=== PATIENT | female | born 1955 | race Caucasian/White ===

== ENCOUNTER → 2023-10-23 11:00 | Outpatient (REF) | payer BC, SELFPAY ==
[2023-10-23 12:18] LABS: PT 13.2 Sec (11.4-14.6)
[2023-10-23 12:19] LABS: APTT 28.8 Sec (23.4-35.0)
== END ==
LOC: RAD 11:00
PROVIDERS: ATTENDING PHYSICIAN Internal Medicine Critical Care Medicine; FAMILY PHYSICIAN Nurse Practitioner Family
DX: R91.1 Solitary pulmonary nodule (principal); Z01.812 Encounter for preprocedural laboratory examination
CPT/HCPCS: 36415; 71250; 85610; 85730

== ENCOUNTER 2023-10-27 06:29 | Day surgery (SDC) | payer BC, SELFPAY ==
[2023-10-27] VITALS (9 sets, daily range): BP systolic 116–130; BP diastolic 63–103; BMI 24.7
== END 2023-10-27 15:11 | disposition home or self-care (01) ==
LOC: GI 06:29
PROVIDERS: ATTENDING PHYSICIAN Internal Medicine Critical Care Medicine
DX: R91.1 Solitary pulmonary nodule (principal); D14.32 Benign neoplasm of left bronchus and lung
CPT/HCPCS: 31629; 31623; 31627; 31624; 31654; 31899; 88172; 88173; 88305; 71045; 74018; 76000; 87015; 87070; 87102; 87116; 87205; 88112; 88177; 88333; 88341; 88342; 94640; C1887

== ENCOUNTER 2024-01-07 05:05 | Inpatient (IN) | payer OTHER, SELFPAY ==
[2023-12-29 08:39] VITALS: BMI 26.5
[2023-12-29 09:13] LABS: % Basophils 1.3 % (0-2); % Eosinophils 0.6 % (0-6); % Immature Granulocytes 0.3 % (0-0.5); % Lymphocytes 21.7 % (20.5-51.1); % Neutrophils 69.1 % (42.2-75.2); Absolute Basophils 0.1 10^3/uL (0-0.2); Absolute Lymphocytes 1.4 10^3/uL (1.2-3.4); Absolute Monocytes 0.4 10^3/uL (0.1-0.6); Absolute Neutrophils 4.3 10^3/uL (1.4-6.5); Hematocrit 40.8 % (37.0-47.0); Hemoglobin 14.1 g/dL (12.0-16.0); Mean Corp Hgb Conc. 34.6 g/dL (33.0-37.0); Mean Corpuscular Hgb 33.1 pg (27.0-31.0); Mean Corpuscular Volume 95.8 fL (81.0-99.0); Mean Platelet Volume 8.9 fL (7.4-10.4); Nucleated Red Blood Cells % 0 %; Platelet Count 213 10^3/uL (130-400); Red Blood Cell Count 4.26 10^6/uL (4.20-5.40); Red Cell Dist. Width 13.4 % (11.5-14.5); White Blood Cell Count 6.3 10^3/uL (4.8-10.8)
[2023-12-29 09:20] LABS: APTT 27.4 Sec (23.4-35.0); INR 0.95; PT 13.2 Sec (11.4-14.6)
[2023-12-29 09:30] LABS: ALT (SGPT) 38 U/L (0-35); AST (SGOT) 40 U/L (14-36); Albumin 4.1 g/dl (3.5-5.0); Alkaline Phosphatase 42 U/L (38-126); Blood Urea Nitrogen 16 mg/dl (7-17); Calcium 9.2 mg/dl (8.4-10.2); Carbon Dioxide 27 mmol/L (22-30); Chloride 104 mmol/L (98-107); Direct Bilirubin 0.1 mg/dl (0.0-0.4); Estimated Creatinine Clearance 75 ml/min; Glucose 100 mg/dl (70-99); Potassium 4.2 mmol/L (3.5-5.1); Sodium 140 mmol/L (135-145); Total Bilirubin 0.6 mg/dl (0.2-1.3); Total Protein 6.5 g/dl (6.3-8.2); eGFR > 60.00
[2023-12-29 09:54] LABS: Urine Albumin Negative (Neg - Trace); Urine Bilirubin Negative (Negative); Urine Character Clear (Clear); Urine Color Yellow; Urine Glucose Negative (Negative); Urine Ketone Negative (Negative); Urine Leukocyte Negative (Negative); Urine Nitrite Negative (Negative); Urine Occult Blood Negative (Negative); Urine Urobilinogen Negative (Neg - 1+); Urine pH 6.5 (5.0-9.0)
[2023-12-29 11:26] LABS: Glycohemoglobin (HgbA1c) 5.3 % (4.0-5.6)
--- NOTE | 2023-12-29 11:57 | CM ---
spoke to pt in PAT's we discussed pre op Lung surgery teaching including driving and lifting restrictions. she is prev indep, lives with her husb in a 2 stroy home with 2 steps to enter. she denies any dme's. she is agreeable to a f/u visit from
the ct transitional care nurse after dc. cm role explained and all questions answered. plan is for [facility] Lobect. 01/06.
[2024-01-07 05:22] VITALS: BP 117/85; BMI 24.7
--- NOTE | 2024-01-07 06:04 | PTCARENOTE ---
Pt admitted to room 2261. Pt confirmed NPO status and 2 CHG showers at home. Weight and VS obtained. Admission questions answered. Home medications confirmed. Pt clipped and prepped. CHG cloth bath completed. ABO drawn and sent. Pt oriented to room
and updated on plan on care. Family brought to the bedside.
--- NOTE | 2024-01-07 06:16 | W.CVOR.SURPR ---
CVOR Surgeon Immed Pre Op
-
I have examined this patient prior to performance of the scheduled procedure.
The patient's condition is unchanged from the time of the dictated/written History and
Physical and the patient is able to undergo the scheduled procedure.
RATS JOSE + LN dissection + Intraop Bronchoscopy
[2024-01-07 07:32] LABS: Urine Albumin Negative (Neg - Trace); Urine Bilirubin Negative (Negative); Urine Character Clear (Clear); Urine Color Yellow; Urine Glucose Negative (Negative); Urine Ketone 1+ (Negative); Urine Leukocyte Negative (Negative); Urine Nitrite Negative (Negative); Urine Occult Blood Negative (Negative); Urine Urobilinogen Negative (Neg - 1+)
--- NOTE | 2024-01-07 09:00 | CM ---
Patient in OR today for planned Lung Surgery.
Reviewed initial assessment; pt. resides w/ spouse in a private 2 story home. She is functionally indep. w/ ADLs, mobility without the use of any assisted device.
Anticipate DC to home once medically stable w/ CT Transitional Care RN.
CM to follow.
--- NOTE | 2024-01-07 12:11 | W.PN.CT.SURG ---
CT Surgery Operative Note
-
THORACIC SURGERY OPERATIVE REPORT
Preoperative Diagnosis: Left upper lobe groundglass opacity with positive biopsy for adenocarcinoma
Postoperative Diagnosis: Same
Procedure(s) Performed:
1. Robotic assisted thoracic surgery (RATS) with conversion to thoracotomy
2. Left upper lobe lobectomy
3. Radical lymph node dissection
4. Intercostal nerve block intercostal spaces 5, 6, 7, 8
5. Additional anesthesia ultrasound-guided nerve block, para vertebral
6. Rib plating and reconstruction (8-hole plate x 2 and 6-hole plate x 1)
7. Preoperative bronchoscopy
Date of Surgery: 01/07/24
Comorbidities:
1. 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
2. Osteoporosis
3. History of breast cancer status postlumpectomy and radiation
4. History of vision issues involving floaters and flashing
5. History of tobacco abuse, recently quit
Attending Surgeon: Ferny Nova MD, MS
Assistants: Ferny Garcia PA-C (present and necessary to first responder, exchanging robotic instruments, retraction, suction, exposure, suture management, and wound closure under my direction) & Elizabeth Pascual PA-C
Anesthesiology: Mark Goyal MD and Shawn Butts CRNA
Scrub and Circulating RNs: Shameka Rendon RN, Wendy Love RN
Anesthesia: Dual Lumen GETA
EBL: 200-250 cc
Products: None
Indication(s) for Procedures: This is a 68-year-old female who is well-known to me. She is found to have a groundglass opacity on lung screening CT scan. She underwent robotic assisted endoluminal bronchoscopy which came back with atypical cells
although not diagnostic. She had further evaluation by 2 other facilities with 1 coming back as positive for non-small cell carcinoma consistent with adenocarcinoma and the other coming back with atypical cells. Multidisciplinary team discussion
between myself and her interventional sommelier came to conclusion that additional biopsies of this groundglass opacity was potentially dangerous as it was right next to a sizable pulmonary artery. We discussed the risk and benefits of surgical
resection and because of the location towards the hilum this was not amenable to wedge resection. We opted for left upper lobectomy with lymph node dissection.
Findings: Given the location of the tumor close towards the hilum and the bronchus, and intraoperative bronchoscopy was performed for positioning the patient. There were no intraluminal lesions identified. There were no obvious intrathoracic
lesions concerning for metachronous disease. She had an incompletely developed fissure. Additional lymph node dissection was performed and listed below. The major lingular branches were divided accordingly. The large branch towards the superior
segment of the left upper lobe was also identified and divided. The branch towards the apical posterior segment of the left upper lobe was densely adherent to the bronchus leading to the left upper lobe. Dissection here resulted in a tear towards
the base of the branch off the main left pulmonary artery. Immediate compression was performed using a robotic arm at this point we had hemostasis and control and so we converted to a thoracotomy. Once this was performed, the bronchial branches
were then divided sequentially in the left upper lobe after clamping and verifying unobstructed flow to the remaining left lower lobe. The only thing remaining was this arterial branch which was divided with a gold load stapler. There was still
some oozing towards the base of the branch and a pledgeted 5-0 suture was used to repair this. Hemostatic agents were then applied to both the hilar stump as well as the raw surface after developing the fissure. The chest was then surveilled and
there was no further bleeding from the hilum or parenchymal tissue. In order to gain access sufficiently to repair the artery, I had to shingle 2 ribs at interspaces 7 and 8. These were repaired using plates with a combination of 8 mm and 10 mm
screws. 2 chest tubes were placed one towards the apex and one towards the diaphragmatic recess. There is no significant air leak at the conclusion of the case and no loss of tidal volume. The left lower lobe that was remaining inflated briskly.
Specimen(s):
Station 9, x 3 nodes
Station 10, x 4 nodes
Station 11, x 1 nodes
Station 5, x 3 nodes
Station 6, x 1 nodes
Station 7, x 1 nodes
Left upper lobe
Description of Procedure: The patient was taken to the operating room. Induction via general anesthesia with endotracheal intubation was performed and peripheral venous access and arterial monitoring were inserted. A preoperative bronchoscopy was
performed which revealed no endoluminal lesions. Their identity and procedure to be performed were verified and they were positioned with the left side up on the operating table. The patient was then prepped and draped in a sterile fashion. A
preoperative time-out was performed with all members of the team present. A Veress needle was used to insufflate the chest after isolating the lung. An 8 mm port was placed in the midaxillary line at approximately the eighth intercostal space and
confirmed to be intrathoracic without significant pulmonary injury. The chest was surveyed for any evidence of metastatic disease. Patient tolerate insufflation without complication. 2 additional 12 mm trocars were placed on either side under
camera guidance and a third 8 mm trocar was placed along the back. A 12 mm therapy assistant port was placed in the 11th intercostal space above the insertion of the diaphragm. An intercostal nerve block was performed at intercostal spaces 5 through 8.
The thoracic cavity was inspected for evidence of metastatic disease. None was observed. We started with mobilization of the inferior pulmonary ligament. We worked our way clockwise dissecting out the hilum and harvest any lymph nodes identified.
The pulmonary arteries and veins leading to the left upper lobe were identified and skeletonized. They were sequentially divided with a white load stapler. Additional green load fires were used to divide the fissure which was incomplete. The
remaining structures at this point where the bronchus leading to the left upper lobe was bifurcated as well as a single apical posterior branch coming off the main pulmonary artery on the left side. Attempts to mobilize the artery off of the
bronchus resulted in bleeding at the base of the branch and so I merely dropped the lung and compressed it with the robotic arm which yielded acceptable hemostasis. Fearing that additional retraction of the left upper lobe would result in
exacerbation of this tear, I converted to a thoracotomy while using the number for robotic arm as my agent to compress. Once entered to the chest, I had the shingle 2 ribs in order to obtain enough cephalad exposure towards the hilum. After
approximately 5 to 10 minutes of compression, there was acceptable amount of hemostasis. I then developed and circumferentially surrounded the 2 bifurcating branches to the left upper lobe. These were divided sequentially with purple load staple
fires after test clamping revealing no obstructed flow to the left lower lobe. At this point this gave me access to the remaining arterial branch of the left upper lobe. This was divided with a gold load stapler. Saline was used to flood the
field in order to remove any hematoma or clotted blood. At this point I noticed that at the bottom of the staple line toward the base of the branch there was still some oozing. A 5-0 pledgeted suture was applied here in order to obtain complete
hemostasis. Hemostatic agents were then applied to the hilum as well as the raw surface of the remaining left lower lobe. The specimen was removed from the chest. I then obtained hemostasis of the chest wall with clips and cautery. The ribs were
reconstructed using a punch and large vicryl suture as well as plates. A combination of 8mm and 10mm screws were used. A 24F straight chest tube was placed anteriorly toward the apex, and a 28F angled chest tube toward the diaphragmatic recess. The
camera was used to surveil the chest and no retained objects were identified and counts were correct. There was the possibility of a lost screw, and so a post surgical chest xray was performed. The fascial layer was closed accordingly in an
interrupted fashion and the muscular layer was closed in a continuous running suture. Skin was closed with running 4-0 vicryl. Additional local anesthesia was injected into all incision sites. The skin wound was cleansed and sealed with Dermabond
glue.
All instrument, sponge, and needle counts were confirmed to be correct x 2 at the end of the operation. The patient was transferred to the cardiac intensive care unit intubated in critical but stable condition.
I, Dr. Ferny Nova, was present, scrubbed for, and performed all critical elements of this procedure.
Ferny Nova MD, MS
Cardiothoracic Surgeon
[facility]
This operative dictation was created using the [employer] dictation system. Please excuse any grammatical, typographical, or 'sound alike' errors
--- NOTE | 2024-01-07 12:39 | CON.INTV ---
Consultation
Consultation Request
Date/Time Consultation Requested: 01/07/2024-1 PM
Date/Time Consultation Performed: 01/07/2024-1:30 PM
Requesting Provider: Dr. Nova
Performing Provider: Dr. Zamudio
Reason for Consultation: Postoperative critical care management
Medical History
-
Chief Complaint: Lungs CA
History of Present Illness:
68-year-old female with a 84-odzh-kjmn smoking history noted to have a PET avid left upper lobe pulmonary nodule who underwent robotic bronchoscopy and pathology was sent for second opinion to [facility] felt positive for malignant
cells favoring non-small cell carcinoma adenocarcinoma and underwent thoracotomy and left upper lobectomy-canal boat captain consulted for postoperative ventilator/critical care management 01/07/2024. Patient is sedated on a ventilator review systems
unobtainable.
Past Medical History
Past Medical History: None (Left upper lobe adenocarcinoma status post lobectomy this admission 01/07/2024. Former 60-esuh-olrn smoker. Osteopenia. 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 Colon polyps.)
Past Surgical History: None (Left elbow fracture. Right breast biopsy. Right breast lumpectomy 06/2018. D&C.)
Social History
Tobacco: Former Smoker (64-zprp-jwlh-quit September 2023)
Alcohol: None (Rare)
Drug: None
Living: With Family
Occupational Exposures: No known asbestos exposure
Environmental Exposures: No known tuberculosis exposure
Family History
Family History: Reviewed & Not Pertinent (Father-cancer-? Type, diabetes, CAD and hypertension. Fyserg-uandvt-lpemce and subsequently pancreatic. Sister-hypertension.)
Allergies / Home Medications
Allergies
Allergy/AdvReac Type Severity Reaction Status Date / Time
No Known Allergies Allergy Unverified 12/25/23 09:14
Home Medications
�Medication �Instructions �Recorded �Confirmed �Last Taken �Type
lorazepam 0.5 mg tablet 0.5 mg PO Daily PRN Anxiety 10/23/23 01/07/24 01/07/24 03:00 History
raloxifene 60 mg tablet (Evista) 60 mg PO DAILY 10/23/23 01/07/24 12/30/23 History
zoledronic acid 5 mg/100 mL in 5 mg IV Q12M 10/23/23 01/07/24 02/24/23 History
mannitol 5 %-water intravenous
piggybck (Reclast)
calcium carbonate (Calcium 500) 500 mg PO DAILY 12/25/23 01/07/24 12/30/23 History
vitamin D3 25 mcg (1,000 unit)-vit 1 tab PO DAILY 12/25/23 01/07/24 12/30/23 History
K2 90 mcg disintegrating tablet
Review of Systems
-
Unable to Obtain full review of systems at this time due to: Other (Per HPI)
Vitals / Labs / Diagnostic Testing
Vital Signs
Temp Pulse Resp BP Pulse Ox
97.6 F 70 16 117/85 100
01/07/24 05:22 01/07/24 05:22 01/07/24 05:22 01/07/24 05:22 01/07/24 05:22
Lab Data
12/29/23 08:48
12/29/23 08:48
Diagnostic Testing:
Physical Exam
-
Exam:
Well-nourished and well-developed in no apparent distress
HEENT-atraumatic, normocephalic
Neck-supple, no JVD, no bruit
Heart-regular rate and rhythm-no murmurs, rubs or gallops
Chest with diminished breath sounds, chest tube on the left with crackles at the base
Abdomen-soft, nontender, nondistended, no hepatosplenomegaly
Extremities-no cyanosis, clubbing, edema and good peripheral pulses
Integument-intact, no rashes, lesions or ecchymosis
Neurology-alert and oriented, nonfocal motor and sensory exam
Assessment
-
68-year-old female with a 26-uieu-cwmu smoking history noted to have a PET avid left upper lobe pulmonary nodule who underwent robotic bronchoscopy and pathology was sent for second opinion to [facility] felt positive for malignant
cells favoring non-small cell carcinoma adenocarcinoma and underwent thoracotomy and left upper lobectomy-canal boat captain consulted for postoperative ventilator/critical care management 01/07/2024.
Lung cancer-left upper lobe 9 mm adenocarcinoma
Status post robotic assisted thoracic surgery with conversion to thoracotomy/left upper lobectomy/radical lymph node dissection-Dr. Nova 01/07/2024
Conditions present prior to admission:
Left upper lobe adenocarcinoma status post lobectomy this admission 01/07/2024.
Former 30-phgp-fmhi smoker-normal PFTs
Osteopenia.
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
Colon polyps.
Left elbow fracture. Right breast biopsy. Right breast lumpectomy 06/2018. D&C.
Plan
Patient seen in the cardiovascular intensive care unit postoperatively
Operative records reviewed
Ventilator settings reviewed
Wean FiO2
Spontaneous breathing trial
Hope to extubate later today
VAP prevention protocol
Nebulizers if needed-not bronchospastic
Preoperative pulmonary functions essentially normal
Monitor chest tube output
Monitor hemoglobin
Monitor platelet count and coags
Transfuse blood product if needed
CT surgery following chest tubes
Analgesia per primary service
Monitor blood sugar
Insulin drip per protocol
Await pathology from lung resection as well as lymph node dissection
Aspiration precautions
VAP prevention protocol
DVT prophylaxis
Early nutrition
Early mobilization
Critical care statement: A total of 55 minutes of critical care time was provided for this patient today. This includes management of ventilator, spontaneous breathing trial, arterial blood gases, pressors, of unstable vital signs, evaluation of the
patient at bedside, reviewing the patient's pertinent medical records including radiographs, microbiology, laboratory evaluations, and discussion with primary team and critical care nursing.
Diagnostic data:
Chest x-ray 01/07/2024-no discrete radiopaque intrathoracic foreign body, ET tube extends into the left mainstem, 2 left-sided chest tubes
PET scan 09/19/23 ([facility]): max SUV 5.23 of left upper lobe nodule measuring 1.4 cm.� Ill-defined right upper lobe nodule measuring 7 mm, SUV 0.67.� No hypermetabolic adenopathy.
LDCT 09/08/23 ([facility]): 5 mm right mid lobe nodule, unchanged.� 6 mm subpleural left lower lobe nodule unchanged.� There is an increase in left upper lobe nodule, groundglass, now measuring 1.6 cm previously 9 mm and a 3 mm solid component.� No
adenopathy.� Images compared to 09/04/22 per report
LDCT 09/04/22 ([facility]): unchanged right upper lobe nodule 5 mm, unchanged 7 mm left lower lobe nodule.� There is no comment on left upper lobe nodule
LDCT 08/23/21 ([facility]): unchanged 6 mm left lower lobe nodule and 5 mm right lower lobe nodule
LDCT 06/17/20 ([facility]): 7 mm left lower lobe nodule, 4 mm right middle lobe nodule subpleural.� Unchanged compared to 2019CXR 06/26/18:mild flattening of the diaphragm and the lateral, mild hyperinflation.
PFT 10/14/23 ([facility]): FVC 3.58/112%, FEV1 2.63/106%, ratio 73.� TLC 5.56/110%, RV 2.06/122%, DLCO 20.72/71%.� Isolated mild gas exchange defect with mild hyperinflation
Data Reviewed
-
PFT: Report reviewed by me
Radiology: Image personally visualized and interpreted and Report reviewed by me
CT Scan: Image personally visualized and interpreted and Report reviewed by me
Medical Tests (Nuc Med, Echo etc): Report reviewed by me
Labs: Labs reviewed by me
Old Records: Reviewed
Critical Care Time (in minutes): 55
--- NOTE | 2024-01-07 13:15 | PTCARENOTE ---
Phone report received daniela Vallecillo CVOR RN around 12noon. PAtient received direct from CVOR status post RATS procedure with conversion to thoracotomy approach with left upper lobe lobectomy, radical lymph dissection, intercostal nerve block 5 6 7 and
8, aaded nerve block para vertebral, rib plating and preop broch. Cjest tubes left apical and left basiliar each to -20 wall suction. No 'dumping'. NSR to SB on monitor. Right radial art line. Precedex/levo intermittent.
[2024-01-07] MEDS: ANCEF 10 IV ×2 (13:20)
[2024-01-07 13:23] LABS: Hematocrit 37.8 % (37.0-47.0); Hemoglobin 12.7 g/dL (12.0-16.0); Mean Corp Hgb Conc. 33.6 g/dL (33.0-37.0); Mean Corpuscular Hgb 33.1 pg (27.0-31.0); Mean Corpuscular Volume 98.4 fL (81.0-99.0); Mean Platelet Volume 8.8 fL (7.4-10.4); Platelet Count 182 10^3/uL (130-400); Red Blood Cell Count 3.84 10^6/uL (4.20-5.40); Red Cell Dist. Width 13.2 % (11.5-14.5); White Blood Cell Count 11.4 10^3/uL (4.8-10.8)
[2024-01-07 13:26] LABS: B.E. -2.7 mmol/L; HCO3 22.6 mmol/L (21-28); O2 Saturation % 99.3 % (94-98); PCO2 40 mmHg (32-35); PO2 218 mmHg (83-108); pH 7.36 (7.35-7.45)
--- NOTE | 2024-01-07 13:32 | W.PN.UPDATE ---
Update Note
Progress Note Update
68 year old female was electively admitted for left upper lobe lobectomy and lymph node dissection due to adenocarcinoma of the lung
IV fluids: 1800
EBL: 250
U.O.:� 300
Blood:� N/A
Wires:� N/A
Inotropes:� N/A
Pressors:� Levopohed
Sedatives:� Precedex
�
NEURO: sedated on Precedex, pupils +2mm B/L
RESP: #8OT @23cm> 450/60%/12/5. Lungs clear B/L. 2R pleural (apical and basilar) chest tubes to separate drainage containers with -20cm suction. Sanguineous drainage
CV: RRR +S1, S2, no S3, no�rub, no murmur. Dermabond to left thoracotomy.
ABD: round, soft, no BS
EXT: no edema, +2/4 DP pulses B/L, no femoral bruit, right radial A-line intact
: Ledbetter with clear yellow urine
�
A/P: POD #0 s/p pre-op bronchostomy, Robotic assisted thoracic surgery (RATS) with conversion to thoracotomy, Left upper lobe lobectomy, Radical lymph node dissection, Rib plating and reconstruction, intercostal and para vertebral nerve block
- wean and extubate, then place Atrium to -10cm suction if air leak is intermittent, otherwise maintain -20cm suction
- Dilaudid LPN INSTRUCTOR @ 0.2mg q10min with 1.2mg lockout/hr
�
# Osteoporosis
- takes Reclast annually
# History of breast cancer s/p lumpectomy and radiation
-resume Evista
# History of tobacco abuse, recently quit
- counselling on importance of lifelong cessation
�
[2024-01-07 13:41] LABS: Blood Urea Nitrogen 15 mg/dl (7-17); Calcium 7.8 mg/dl (8.4-10.2); Carbon Dioxide 22 mmol/L (22-30); Chloride 106 mmol/L (98-107); Estimated Creatinine Clearance 93 ml/min; Glucose 153 mg/dl (70-99); Potassium 4.3 mmol/L (3.5-5.1); Sodium 137 mmol/L (135-145); eGFR > 60.00
[2024-01-07 13:43] LABS: INR 0.95; PT 13.1 Sec (11.4-14.6)
[2024-01-07 13:45] LABS: APTT 25.6 Sec (23.4-35.0)
[2024-01-07] MEDS: DILAUDID PCA 30 IV (14:03)
[2024-01-07] MEDS: TORADOL 15 MG IV ×2 (14:13→23:45)
--- NOTE | 2024-01-07 14:15 | PTCARENOTE ---
Apical chest tube as labeled by CT KALYANI Isaacs, has small plus 1 air leak. Basiliar chest tube as labeled without air leak. Ruthann CT surgical ANDROID PLATFORM DEVELOPER aware of same. Patient is starting to awaken, but too groggy for CPAP wean(apneic periods) will
monitor for wakefullness a readiness for cpap vent wean per cvicu protocol.
[2024-01-07] MEDS: NEURONTIN PO ×2 (15:03→16:00)
[2024-01-07] MEDS: MIRALAX PO (15:03)
[2024-01-07] MEDS: EVISTA PO (15:03)
[2024-01-07] MEDS: TYLENOL PO (15:04)
[2024-01-07] MEDS: SENOKOT PO ×2 (15:04→21:25)
[2024-01-07 15:48] LABS: B.E. -4.2 mmol/L; O2 Saturation % 99.9 % (94-98); PCO2 38 mmHg (32-35); PO2 152 mmHg (83-108); pH 7.35 (7.35-7.45)
--- NOTE | 2024-01-07 15:55 | PTCARENOTE ---
No macute changes. Apical and basilar chest tube suction reduced to -10cm per ct surgery. Patient with CHARGE AUDITOR is tolerating CPAP wean and abg results to DILMA Beavers and Dr. Nova. Extuabated to 4l nasal canula with continuous ETCO2 monitoring
[2024-01-07] MEDS: ZOFRAN 4 MG IV (16:25)
--- NOTE | 2024-01-07 18:00 | PTCARENOTE ---
No acute changes. Vitals stable. No further nausea. Pain well controlled by TOWEL CABINET REPAIRER as ordered and instructed.
[2024-01-07] MEDS: ANCEF 5 IV (18:12)
--- NOTE | 2024-01-07 19:00 | PTCARENOTE ---
report received from previous RN, walking rounds done. pt in bed, spouse at bedside. pt AAOx4. pt reports pain is controlled with DRUM PRINTER pump. NSR/SB on monitor, HR 50s-60s. B/L radial and DP pulses palpable. heart tones clear. right radial arterial
line intact, SBP ~110s-120s. B/L breath sounds present. POX 97-99% on 2LNC. etCO2 monitor in place reading ~35-36. IS encouraged. CT x2 intact to -10cm wall suction, drainage WNL, no air leak noted. sosa catheter intact, draining CYU, UO adequate.
hypoactive bowel sounds present. pt tolerating ice and sips of water. PIV x2 intact. IVFs infusing @ 40 mL/hr per orders w DRUM PRINTER infusion. all surgical sites stable. see worklist for full assessment, VS, and interventions. pt resting comfortably.
[2024-01-07] MEDS: TYLENOL 1000 MG PO (21:24)
[2024-01-07] MEDS: NEURONTIN 100 MG PO (21:24)
[2024-01-07] MEDS: HEPARIN 5000 UNITS SC (21:24)
[2024-01-07] MEDS: COLACE PO (21:25)
--- NOTE | 2024-01-07 23:00 | PTCARENOTE ---
no acute changes in assessment. SR/SB 50s-60s. POX 98% on 2LNC. CT output and UO WNL. all surgical sites stable. pt reports pain is becoming increasing worse, see MAR for PRN med administration. turning/repositioning pt as needed.
[2024-01-08] VITALS (10 sets, daily range): BP systolic 96–126; BP diastolic 51–78; BMI 24.9
[2024-01-08] MEDS: DILAUDID 0.5 MG IV (00:02)
[2024-01-08] MEDS: FLEXERIL 5 MG PO ×3 (00:08→17:26)
[2024-01-08] MEDS: D5/0.45%NACL 1000 IV (00:18)
[2024-01-08] MEDS: ANCEF 5 IV ×2 (02:04→10:22)
--- NOTE | 2024-01-08 03:00 | PTCARENOTE ---
no acute changes, pt VSS. NSR 60s. POX 96-98% on 2LNC. etCO2 35-36. CT output and UO WNL. all surgical sites stable. pt resting comfortably.
[2024-01-08] MEDS: DILAUDID 0.25 MG IV (04:07)
[2024-01-08 04:13] LABS: Hemoglobin 12.5 g/dL (12.0-16.0); Mean Corp Hgb Conc. 33.8 g/dL (33.0-37.0); Mean Corpuscular Hgb 33.3 pg (27.0-31.0); Mean Corpuscular Volume 98.7 fL (81.0-99.0); Mean Platelet Volume 8.9 fL (7.4-10.4); Platelet Count 195 10^3/uL (130-400); Red Blood Cell Count 3.75 10^6/uL (4.20-5.40); Red Cell Dist. Width 13.2 % (11.5-14.5); White Blood Cell Count 13.6 10^3/uL (4.8-10.8)
[2024-01-08 04:35] LABS: Blood Urea Nitrogen 12 mg/dl (7-17); Calcium 7.8 mg/dl (8.4-10.2); Carbon Dioxide 23 mmol/L (22-30); Chloride 109 mmol/L (98-107); Estimated Creatinine Clearance 93 ml/min; Glucose 132 mg/dl (70-99); Magnesium 2.1 mg/dl (1.6-2.3); Potassium 4.5 mmol/L (3.5-5.1); Sodium 139 mmol/L (135-145); eGFR > 60.00
--- NOTE | 2024-01-08 05:30 | W.PN.CT ---
Today's Communication / Plan
-
-pod #1
-no significant issues overnight
-on Dilaudid MORNING SHOW HOST postop with some breakthrough pain, tx with Toradol and Neurontin
-L pleural CTS: Apical Romeo with intermittent air leak with cough or deep breathing, -10 sxn, put out 40/110 in 12/24 hrs; Base CT with no air leak, -10 sxn, put out 120/180 in 12/24 hrs
-follow daily CXR
-d/c Ledbetter
-encourage IS
-DVT proph with sq Heparin
Assessment / Plan
-
- Left upper lobe adenocarcinoma of the lung - s/p pre-op bronchostomy, Robotic assisted thoracic surgery (RATS) with conversion to Thoracotomy, Left upper lobe lobectomy, Radical lymph node dissection, Rib plating and reconstruction, intercostal
and para vertebral nerve block on 01/07/[address] Nova, pod #1
- History of breast cancer, status post lumpectomy and radiation
- Osteoporosis
- History of vision issues involving floaters and flashing
- History of tobacco abuse, recently quit
- Acute postop atelectasis
Discussed patient care with: Nursing and Care Team
Subjective
-
Date of Service: January 07, 2024
Objective Data
-
Lab Results
01/07/24 13:15
01/07/24 13:15
PT 13.1 Sec (11.4-14.6) 01/07/24 13:15
INR 0.95 01/07/24 13:15
APTT 25.6 Sec (23.4-35.0) 01/07/24 13:15
Vital Signs
Vital Signs
Temp Pulse Resp BP Pulse Ox
99.4 F 57 12 117/85 96
01/07/24 22:00 01/07/24 22:00 01/07/24 22:00 01/07/24 05:22 01/07/24 22:00
CT Intake/Output/Weight
01/07/24 01/07/24 01/08/24
06:59 18:59 06:59
Intake Total 210 / 370 160 / 370
Output Total 350 / 585 235 / 585
Balance -140 / -215 -75 / -215
SaO2: 96
Physical Exam
-
General: Awake and AOx3
Cardiovascular: Regular rate & rhythm, No Murmurs and No Rub
Respiratory: Decreased Breath Sounds (on L, Clear on R. No wheeze b/l)
Incision: Clean, Dry and Intact
Extremities: No Edema (2+ DPs b/l)
Abdomen: soft, nontender, nondistended, + bowel sounds
Data Reviewed
-
Lab Results: Results Reviewed
Medications: Active Meds Reviewed
Chest X-Ray: Report Reviewed and Image Reviewed
ECG: Report Reviewed and Image Reviewed
[2024-01-08] MEDS: ZOFRAN 4 MG IV (06:58)
[2024-01-08] MEDS: TYLENOL 1000 MG PO ×3 (06:58→23:08)
--- NOTE | 2024-01-08 07:21 | W.PN.ANS.POP ---
Anesthesia Post Operative
- Anesthesia Post Op Note
Vital Signs Stable-See Nursing Note: Yes
Airway Patent: Yes
Adequate Pain Control: Yes (Pt with some incisional discomfort, encouraged to utilize PRN pain meds.)
Change in Mental Status: No
Current Postoperative Nausea & Vomiting: No
Anesthesia Complications: No
General Anesthetic Recall: No
Unplanned Admission: No
Post Op Hydration Adequate: Yes
- -
Selected Entries
01/08/24
07:00
Resp Rate 16
SaO2 98
Nasal Cannula flow liters per minute 2
Pain scale ratin
etC02 value 35
--- NOTE | 2024-01-08 07:44 | W.PN.INTV ---
Today's Communication / Plan
Recommendations
Tolerated extubation
Wean FiO2
Monitor chest tube output
Follow chest x-ray
Increase activity
Outpatient pulmonary follow-up
Assessment
-
68-year-old female with a [id number] smoking history noted to have a PET avid left upper lobe pulmonary nodule who underwent robotic bronchoscopy and pathology was sent for second opinion to [facility] felt positive for malignant
cells favoring non-small cell carcinoma adenocarcinoma and underwent thoracotomy and left upper lobectomy-captain waiter/waitress consulted for postoperative ventilator/critical care management 01/07/2024.
Lung cancer-left upper lobe 9 mm adenocarcinoma
Status post robotic assisted thoracic surgery with conversion to thoracotomy/left upper lobectomy/radical lymph node dissection-Dr. Nova 01/07/2024
Conditions present prior to admission:
Left upper lobe adenocarcinoma status post lobectomy this admission 01/07/2024.
Former [id number] smoker-normal PFTs
Osteopenia.
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
Colon polyps.
Left elbow fracture. Right breast biopsy. Right breast lumpectomy 06/2018. D&C.
Plan
Respiratory status stable-tolerated extubation
Wean supplemental oxygen
Nebulizers if needed-not bronchospastic
Preoperative pulmonary functions essentially normal-mild reduction in diffusing capacity
Continue to follow chest tube output
Monitor hemoglobin
Monitor platelet count and coags
Transfuse blood product if needed
CT surgery following chest tubes
Analgesia per primary service
Monitor blood sugar
Insulin drip per protocol
Await pathology from lung resection as well as lymph node dissection
Aspiration precautions
VAP prevention protocol
DVT prophylaxis
Early nutrition
Early mobilization
Patient likely downgraded to telemetry-captain waiter/waitress will sign off-please call with questions
Reviewed the patient's pertinent medical records including radiographs, microbiology, laboratory evaluations, and discussion with primary team and critical care nursing.
Diagnostic data:
Chest x-ray 01/07/2024-no discrete radiopaque intrathoracic foreign body, ET tube extends into the left mainstem, 2 left-sided chest tubes
PET scan 09/19/23 ([facility]): max SUV 5.23 of left upper lobe nodule measuring 1.4 cm.� Ill-defined right upper lobe nodule measuring 7 mm, SUV 0.67.� No hypermetabolic adenopathy.
LDCT 09/08/23 ([facility]): 5 mm right mid lobe nodule, unchanged.� 6 mm subpleural left lower lobe nodule unchanged.� There is an increase in left upper lobe nodule, groundglass, now measuring 1.6 cm previously 9 mm and a 3 mm solid component.� No
adenopathy.� Images compared to 09/04/22 per report
LDCT 09/04/22 ([facility]): unchanged right upper lobe nodule 5 mm, unchanged 7 mm left lower lobe nodule.� There is no comment on left upper lobe nodule
LDCT 08/23/21 ([facility]): unchanged 6 mm left lower lobe nodule and 5 mm right lower lobe nodule
LDCT 06/17/20 ([facility]): 7 mm left lower lobe nodule, 4 mm right middle lobe nodule subpleural.� Unchanged compared to 2019CXR 06/26/18:mild flattening of the diaphragm and the lateral, mild hyperinflation.
PFT 10/14/23 ([facility]): FVC 3.58/112%, FEV1 2.63/106%, ratio 73.� TLC 5.56/110%, RV 2.06/122%, DLCO 20.72/71%.� Isolated mild gas exchange defect with mild hyperinflation
Subjective Dataa
Subjective Data
Date of Service:
Date of Service: January 08, 2024
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
Subjective:
Tolerated extubation, no complaints of shortness of breath, pain mostly controlled, chest tubes with minimal drainage, no abdominal pain
Review of Systems
General: Other ( per HPI)
Objective Data
Data Reviewed
Vital Signs / I&O / Oxygen:
Vital Signs
Temp Pulse Resp BP Pulse Ox
99.1 F 73 16 117/85 98
01/08/24 06:00 01/08/24 04:00 01/08/24 07:00 01/07/24 05:22 01/08/24 07:00
Intake and Output
01/07/24 01/08/24 01/09/24
06:59 06:59 06:59
Intake Total 690 / 690
Output Total 1325 / 1325
Balance -635 / -635
SaO2 [CPAP/PSV] 98
SaO2 [SIMV] 98
SaO2 98
Nasal Cannula flow liters per 2
minute
Physical Exam
General: Respiratory Distress (n) and Comfortable
HEENT: Normocephalic, Anicteric and Moist Mucous Membranes
Cardiovascular: Regular Rhythm
Respiratory: Wheeze (n), Crackles (n), Rhonchi (n), Non-Labored Respirations, Accessory Resp Muscle Use (n) and Stridor (n)
GI: Soft, Non Distended and Non Tender
Neurology: Awake, Alert and No Motor Deficits
Skin: Warm, Good Color, Cyanosis (n), Jaundice (n) and Rash (n)
Labs/Micro/Reports
Lab Data
01/08/24 03:59
01/08/24 03:59
Laboratory Results
01/07/24 01/07/24
13:15 15:38
PT 13.1
INR 0.95
APTT 25.6
pH 7.36 7.35
pCO2 40 H 38 H
pO2 218 H 152 H
HCO3 22.6 21.0
O2 Delivery Level Not Reportable
--- NOTE | 2024-01-08 08:30 | PTCARENOTE ---
Assumed care of patient. Pt assessed while she was sitting in the chair. Pt alert and oriented x4. Pt rates left sided chest/back pain 2/10 while resting and then 7 when doing IS. Denies nausea at this time. NSR on tele with rates 60s-70s. BP
109/61. Bilateral radial and DP pulses palpable. No edema noted. POX 98% on 1L NC. EtCO2 33. Lungs diminished throughout. No cough noted. IS encouraged-750mL achieved. Left basilar and Left apical chest tubes to water seal, no air leaks, tidaling,
crepitus noted. Abdomen soft, nontender. Hypoactive BS. +gas. Due to void post sosa removal. Left sided incision approximated with skin glue, ecchymosis noted. Chest tube dressing CDI. Left hand PIC and Right AC PIV intact. Dilaudid CIGARETTE MAKING MACHINE HOPPER FEEDER and IVF
infusing. See MAR for medication administration. See worklist for complete nursing assessment. Plan of care reviewed and pt in agreement.
[2024-01-08] MEDS: COLACE 100 MG PO (08:59)
[2024-01-08] MEDS: EVISTA 60 MG PO (09:00)
[2024-01-08] MEDS: NEURONTIN 100 MG PO ×3 (09:00→23:08)
[2024-01-08] MEDS: TORADOL 15 MG IV ×2 (09:01→17:26)
[2024-01-08] MEDS: SENOKOT 8.6 MG PO ×2 (09:01→20:50)
[2024-01-08] MEDS: HEPARIN 5000 UNITS SC ×2 (09:02→16:42)
[2024-01-08] MEDS: LIDOCAINE 4% PATCH 1 PATCH TOPICAL (09:03)
[2024-01-08] MEDS: MIRALAX PO (09:03)
--- NOTE | 2024-01-08 12:25 | PTCARENOTE ---
Pt reassessed. NSR with rates in the 70s. BP 96/51. POX 95% on RA. Surgical sites stable. CT output WNL. Pt voided adequate amounts of clear yellow urine post sosa removal. Pain control with dilaudid HOT STICK WORKER and Teodora.
[2024-01-08] MEDS: ROXICODONE 5 MG PO ×2 (12:32→20:49)
--- NOTE | 2024-01-08 14:53 | CM ---
CM following for DC planning needs.
Met w/ patient, spouse at bedside. Pt. reports that she is feeling well, POD#1.
DC plan anticipated for home w/ CT Transitional Care RN.
We reviewed DC plan + follow up MD appointments.
CM will cont. to follow.
--- NOTE | 2024-01-08 16:30 | PTCARENOTE ---
Pt reassessed. NSR on tele with rates in the 60s-70s. BP 99/52. POX 92% on RA. Surgical site stable. CT output WNL. TEXTURING MACHINE FIXER d/c, see MAR for pain control.
[2024-01-08] MEDS: ROXICODONE 2.5 MG PO (16:43)
--- NOTE | 2024-01-08 20:30 | PTCARENOTE ---
Assumed care of patient at 1900. Patient found resting in bed at time of assessment. Patient is AOx4, follows commands appropriately, moves all extremities. Lung sounds are diminished on the L side throughout, saO2 97% on RA, CTx2: L basilar to one
atrium and L apical to one atrium. L apical CT has +1 airleak present when patient coughs. Heart sounds are audible, patient is NSR on the monitor. Patient has normal palpable pulses and no edema is present. Patient has active BS present in all four
quadrants and is voiding without difficulty. There is a left lateral chest incision extending to the L upper back that is approx with surg adhesive, ecchymotic and MOBILE PET GROOMER. There are 4x4 dressings present over CT wounds that are CDI. Patient had two PIV
sites that were leaking on inspection so these were discontinued. New PIV site started in L FA 22G. Patient c/o pain see APR for pain management. VSS.
[2024-01-09] VITALS (11 sets, daily range): BP systolic 107–151; BP diastolic 61–82; BMI 25.3
--- NOTE | 2024-01-09 | PTCARENOTE ---
Patient reassessed. VSS. No c/o pain. Remains in SR on the monitor.
[2024-01-09] MEDS: TORADOL 15 MG IV ×2 (00:02→08:58)
[2024-01-09] MEDS: HEPARIN 5000 UNITS SC ×4 (00:04→22:52)
--- NOTE | 2024-01-09 00:24 | PTCARENOTE ---
Patient reassessed. VSS. Remains SR on the monitor. Patient received Toradol for c/o pain that woke patient. Pain adequately managed according to patient at this time.
[2024-01-09 03:42] LABS: Hepatitis C Antibody Negative (Negative)
[2024-01-09] MEDS: ROXICODONE 5 MG PO ×3 (04:44→13:39)
[2024-01-09] MEDS: FLEXERIL 5 MG PO ×2 (04:44→12:35)
[2024-01-09 05:30] LABS: Mean Corp Hgb Conc. 33.3 g/dL (33.0-37.0); Mean Corpuscular Hgb 33.3 pg (27.0-31.0); Platelet Count 195 10^3/uL (130-400); Red Cell Dist. Width 13.6 % (11.5-14.5); White Blood Cell Count 9.6 10^3/uL (4.8-10.8)
--- NOTE | 2024-01-09 06:07 | W.PN.CT ---
Today's Communication / Plan
-
-pod #2
-no significant issues overnight, looks comfortable
-L pleural CTS are both on water seal
-Apical Romeo with intermittent air leak with cough only, put out 30/70 in 12/24 hrs;
-Base CT with no air leak, put out 30/150 in 12/24 hrs
-follow daily CXR
-encourage IS
-DVT proph with sq Heparin
Assessment / Plan
-
- Left upper lobe adenocarcinoma of the lung - s/p pre-op bronchostomy, Robotic assisted thoracic surgery (RATS) with conversion to Thoracotomy, Left upper lobe lobectomy, Radical lymph node dissection, Rib plating and reconstruction, intercostal
and para vertebral nerve block on 01/07/[address] Nova, pod #2
- History of breast cancer, status post lumpectomy and radiation
- Osteoporosis
- History of vision issues involving floaters and flashing
- History of tobacco abuse, recently quit
- Acute postop atelectasis, tiny L PTX
Discussed patient care with: Nursing and Care Team
Subjective
-
Date of Service: January 09, 2024
Objective Data
-
PT 13.1 Sec (11.4-14.6) 01/07/24 13:15
INR 0.95 01/07/24 13:15
APTT 25.6 Sec (23.4-35.0) 01/07/24 13:15
Vital Signs
Vital Signs
Temp Pulse Resp BP Pulse Ox
97.5 F 77 18 113/65 97
01/08/24 19:00 01/08/24 21:00 01/08/24 19:00 01/08/24 21:00 01/08/24 20:00
CT Intake/Output/Weight
01/08/24 01/08/24 01/09/24
06:59 18:59 06:59
Intake Total 480 / 730 640 / 640
Output Total 975 / 1325 785 / 815 30 / 815
Balance -495 / -595 -145 / -175 -30 / -175
SaO2: 97
Physical Exam
-
General: Awake and AOx3
Cardiovascular: Regular rate & rhythm, No Murmurs and No Rub
Respiratory: Decreased Breath Sounds (few rales on L. Clear on R)
Incision: Clean, Dry and Intact
Extremities: No Edema (2+ DPs b/l)
Abdomen: soft, nontender, nondistended, + bowel sounds
Data Reviewed
-
Lab Results: Results Reviewed
Medications: Active Meds Reviewed
Chest X-Ray: Report Reviewed and Image Reviewed
ECG: Report Reviewed and Image Reviewed
[2024-01-09 06:09] LABS: Blood Urea Nitrogen 14 mg/dl (7-17); Carbon Dioxide 24 mmol/L (22-30); Estimated Creatinine Clearance 93 ml/min; Glucose 92 mg/dl (70-99); Magnesium 2.2 mg/dl (1.6-2.3); Potassium 4.4 mmol/L (3.5-5.1); Sodium 140 mmol/L (135-145); eGFR > 60.00
[2024-01-09 06:19] LABS: Calcium 8.2 mg/dl (8.4-10.2); Chloride 109 mmol/L (98-107)
[2024-01-09] MEDS: TYLENOL 1000 MG PO ×3 (06:34→22:51)
[2024-01-09] MEDS: MIRALAX 17 GRAMS PO (08:57)
[2024-01-09] MEDS: LIDOCAINE 4% PATCH 1 PATCH TOPICAL (08:58)
[2024-01-09] MEDS: NEURONTIN 100 MG PO ×3 (08:59→22:52)
[2024-01-09] MEDS: EVISTA 60 MG PO (08:59)
[2024-01-09] MEDS: SENOKOT 8.6 MG PO ×2 (08:59→20:04)
--- NOTE | 2024-01-09 09:42 | PTCARENOTE ---
assumed care of pt from previous shift RN, sinus rhythm on tele, VSS, + peripheral pulses, no edema. Lungs diminished, coughing and deep breathing encouraged. Left basilar CT removed by CT AVEL, apical CT remains to H20 seal. Pt medicated for pain.
Plan of care reviewed and questions encouraged.
--- NOTE | 2024-01-09 12:08 | PTCARENOTE ---
VSS, pt assisted from bed to chair. Minimal output from remaining CT. Pt medicated for pain. IS encouraged.
--- NOTE | 2024-01-09 13:18 | CM ---
CM following for DC planning needs.
Reviewed DC plans. Pt. for DC to home once medically stable w/ CT Transitional Care RN.
No other immediate needs identified.
CM will remain avail.
--- NOTE | 2024-01-09 15:16 | PTCARENOTE ---
VSS, sinus rhythm on tele, apical CT remains to H20 seal w minimal amount of drainage. Assisted pt w ambulation in hallway and medicated for pain.
--- NOTE | 2024-01-09 15:19 | PN.CDI ---
CDI
- -
CDI:
Physician Documentation Request
Admit Date: 01/07/24 05:05
Dear Doctor Rohini,
Patient admitted with left upper lobe adenocarcinoma of the lung - s/p pre-op bronchostomy, Robotic assisted thoracic surgery (RATS) with conversion to Thoracotomy, Left upper lobe lobectomy, Radical lymph node dissection, Rib plating and
reconstruction, intercostal and para vertebral nerve block on 01/07/24.
12/28 Hgb 14.1
01/08 Hgb 11.0
Based on the above, please clarify in your note which of the following is the most likely diagnosis you are evaluating, monitoring and/or treating?
Acute blood loss anemia
Insignificant abnormal lab findings
Other
Use of terms such as suspected, likely, concern for, or probable (associated with a specific diagnosis that is being evaluated, monitored, or treated as if it exists) are acceptable and can be coded in the inpatient setting, when documented at the
time of discharge.
Thank you,
Shivani MULLENN,RN,CCDS
CDI Specialist
Available via [place] text
Please use your independent medical judgment in providing your response.
[2024-01-09] MEDS: MOTRIN 400 MG PO (20:04)
--- NOTE | 2024-01-09 20:20 | PTCARENOTE ---
Assumed care of patient at 1900. Patient found resting in bed at time of assessment. Patient is AOx4, follows commands appropriately, moves all extremities. Lung sounds are clear and equal bilaterally, saO2 95% on RA. Heart sounds have a regular
rate and rhythm, patient is SR on the monitor, normal palpable pulses and no observable edema. Patient has active BS throughout all four quadrants, patient reports no BM post procedure at this time, patient is voiding in bathroom without difficulty.
There is a L lateral chest incision approx with surg adhesive LOCOMOTIVE BOILERMAKER and L lateral chest puncturex2 with 4x4 dressing that is CDI. There is a L FA PIV available for intermittent infusion. Patient given 1xmotrin for c/o mild pain. VSS.
--- NOTE | 2024-01-10 01:02 | W.PN.CT ---
Addendum entered and electronically signed by DILMA Rios 01/12/24 15:26:
CDI query:
Acute blood loss anemia
Original Note:
Today's Communication / Plan
-
Plan:
-No major issues overnight. Hemodynamically and neurologically intact
-Chest tubes d/c'd yesterday 01/09/24 without incident
-CxR this AM with probable tiny left apical ptx, unchanged to from yesterday to my eyes, f/u official report
-Encourage use of IS
-OOB into chair/Ambulate
-D/C home
Assessment / Plan
-
- Left upper lobe adenocarcinoma of the lung - s/p pre-op bronchostomy, Robotic assisted thoracic surgery (RATS) with conversion to Thoracotomy, Left upper lobe lobectomy, Radical lymph node dissection, Rib plating and reconstruction, intercostal
and para vertebral nerve block on 01/07/[address] Nova, pod #3
- History of breast cancer, status post lumpectomy and radiation
- Osteoporosis
- History of vision issues involving floaters and flashing
- History of tobacco abuse, recently quit
- Acute postop atelectasis, tiny L PTX
Discussed patient care with: Cardiology, Nursing, Respiratory Therapy, Pharmacy and Care Team
Subjective
-
Date of Service: January 10, 2024
Pt c/o mild incsional pain, otherwise feels well
Objective Data
-
Lab Results
01/09/24 05:08
01/09/24 05:08
PT 13.1 Sec (11.4-14.6) 01/07/24 13:15
INR 0.95 01/07/24 13:15
APTT 25.6 Sec (23.4-35.0) 01/07/24 13:15
Vital Signs
Vital Signs
Temp Pulse Resp BP Pulse Ox
98.6 F 72 18 117/68 95
01/09/24 19:00 01/09/24 20:00 01/09/24 19:00 01/09/24 19:48 01/09/24 20:00
CT Intake/Output/Weight
01/09/24 01/09/24 01/10/24
06:59 18:59 06:59
Intake Total 100 / 100
Output Total 60 / 845 120 / 120
Balance -60 / -205 -20 / -20
SaO2: 95 (RA)
Physical Exam
-
General: Awake, Oriented and AOx3
Cardiovascular: Regular rate & rhythm, No Rub and No Gallop
Respiratory: Decreased Breath Sounds (on left, otherwise clear)
Incision: Clean, Dry, Intact and Dressing Intact
Extremities: No Edema
Data Reviewed
-
Lab Results: Results Reviewed
Medications: Active Meds Reviewed
Chest X-Ray: Report Reviewed and Image Reviewed
ECG: Report Reviewed and Image Reviewed
[2024-01-10 03:00] VITALS: BP 131/75
[2024-01-10 05:01] VITALS: BP 131/75
[2024-01-10] MEDS: ROXICODONE 5 MG PO ×2 (05:44→12:11)
[2024-01-10] MEDS: TYLENOL 1000 MG PO (05:44)
[2024-01-10 06:00] VITALS: BMI 25.2
--- NOTE | 2024-01-10 07:34 | PTCARENOTE ---
Patient reassessed. VSS. Patient with c/o 11/26 pain this AM given Emi. Successful void. Remains in SR on the monitor.
[2024-01-10 08:01] VITALS: BP 137/81
[2024-01-10] MEDS: EVISTA 60 MG PO (08:02)
[2024-01-10] MEDS: SENOKOT 8.6 MG PO (08:02)
[2024-01-10] MEDS: NEURONTIN 100 MG PO (08:02)
[2024-01-10] MEDS: HEPARIN 5000 UNITS SC (08:03)
[2024-01-10] MEDS: LIDOCAINE 4% PATCH 1 PATCH TOPICAL (08:03)
[2024-01-10] MEDS: MIRALAX 17 GRAMS PO (08:10)
--- NOTE | 2024-01-10 09:07 | PTCARENOTE ---
Received pt by cisco network engineer RN; pt AAOX3 and resting comfortably in bed; NSR on monitor and VSS; Lungs diminished; IS to 1000; hypoactive bowel sounds; pt voiding yellow urine; palpable pulses throughout; no edema noted; all surgical sites C/D/I; see
nursing documentation for further details.
[2024-01-10] MEDS: FLEXERIL 5 MG PO (09:33)
--- NOTE | 2024-01-10 11:30 | PTCARENOTE ---
NSR on monitor and VSS; assessment unchanged and awaiting discharge.
[2024-01-10 11:38] VITALS: BP 133/74
--- NOTE | 2024-01-10 11:39 | W.[place]-PDMP ---
[place]-PD[place]
-
Checked the [place]- Prescription Drug Monitoring Program website, no red flags identified; safe to proceed with prescription.
--- NOTE | 2024-01-10 12:45 | PTCARENOTE ---
Discharge instructions gone over with patient and ; all questions answered; IV and ux architect removed; pt discharged via wheelchair.
--- NOTE | 2024-01-10 16:19 | W.DCSUMMARY ---
Discharge Summary
Discharge Data
Date of Admission: 01/07/24
Date of Discharge: 01/10/24
-
Pending Results: No
Hospital Course
Patient is a 68-year-old female electively admitted to [facility] for a left upper lobectomy. She was initially seen by tank car cleaner Dr. Paredes for pulmonary workup. She had a long history of smoking, history of breast cancer status
postlumpectomy and radiation. She was found to have a left upper lobe ground glass opacity with a positive biopsy for adenocarcinoma. She was seen in consultation by Dr. Nova and felt to be an acceptable surgical candidate.
On 01/07/2024 she was brought to the operating room where she underwent robotic assisted thoracic surgery with conversion to thoracotomy. A left upper lobectomy was performed and radical lymph node dissection. She tolerated the procedure well and
was returned to the surgical intensive care unit where she arrived in hemodynamically stable condition. She initially required low-dose Levophed but this was able to be DC'd. Pain was controlled with a Dilaudid [facility] pump. She did not require any
blood transfusions in the operating room or during her entire hospitalization at [facility].
Postoperative day #1 her chest tube was placed to waterseal there was a small pneumothorax and remained on waterseal. Her pain was controlled and she began physical therapy.
Postoperative day #2 1 chest tube was removed identification clerk and the remaining chest tube remained on waterseal. Repeat chest x-ray later that afternoon showed no change and remaining chest tube was removed safely.
Postoperative day #3 morning x-ray showed no change. There is a stable tiny left lateral pneumothorax. She was now able to ambulate without difficulty in her room and was able to be discharged later that afternoon. At time of discharge her vital
signs were as follows she was afebrile heart rate was 72 and regular, blood pressure 133/74, room air O2 sat 98%.
Discharge labs were as follows hemoglobin 11 hematocrit 33, white blood cell count 9.6, platelets 195. Her BUN was 14 and creatinine 0.6.
She was given a full set of discharge instructions and follow-up appointments with Dr. Nova. She will also be seen by our transitional care nurse for postoperative wound care.
Discharge Plan
-
Patient Disposition: Home (Routine Discharge)
Discharge Diagnosis/Procedures: left upper lobectomy
Condition: Good
Diet: No restrictions
Activity: No strenuous activity
Driving Restrictions: Not until seen by your Dr
Bathing Restrictions: OK to Shower
Referrals:
CT Transitional Care Nurse [Outside] (The Cardiothoracic Transitional Care Nurse will call you to set up a visit in 1-2 days.)
Eugenia Paredes MD [Active] - in two to four weeks (Follow-up with pulmonary to review pathology and surveillance CTs set up)
Ferny Nova MD [Active] - 02/05/24 12:45 pm
Og Gooden CRNP [Family Provider] -
Additional Discharge Medication Instructions: New rx; gabapentin/oxycodone prn/senna & miralax for constipation
Prescriptions:
New
polyethylene glycol 3350 17 gram Powder In Packet
17 g PO DAILY Qty: 0 0RF
gabapentin 100 mg Capsule
100 mg PO TID Qty: 15 0RF
oxycodone 5 mg Tablet
5 mg PO Q6HPRN PRN (Reason: severe pain) Qty: 15 0RF
sennosides [Senna Laxative] 8.6 mg Tablet
8.6 mg PO BID Qty: 20 1RF
acetaminophen 325 mg Tablet
650 mg PO Q4HPRN PRN (Reason: mild pain,headache,temp >101F ) Qty: 0 0RF
Continued
lorazepam 0.5 mg Tablet
0.5 mg PO Daily PRN (Reason: Anxiety)
raloxifene [Evista] 60 mg Tablet
60 mg PO DAILY
zoledronic sabo-nyklbfts-iomko [Reclast] 5 mg/100 mL Piggyback
5 mg IV Q12M
calcium carbonate [Calcium 500] 500 mg calcium (1,250 mg) Tablet,Chewable
500 mg PO DAILY
vitamin D3-vitamin K2 25 mcg (1,000 unit)-90 mcg Tablet,Disintegrating
1 tab PO DAILY
Discharge Orders:
Discharge Patient (As Directed); Ordered 01/10/24
Ordered By: Abad Santizo
Care Plan Goals
Care Plan Goals:
Problem: Readiness for enhanced knowledge related to diagnosis and treatment plan
Goal: Understand your diagnosis and treatment plan needs, including medications if applicable.
Instructions: Know your diagnosis, underlying causes and treatment plan options, including medications if applicable. Consult with your health care team to learn about your diagnosis and treatment plan, including medications if applicable.
Discharge Date and Time
Discharge Date/Time: 01/10/24 13:00
Print Language: GAMBIAN
== END 2024-01-10 13:00 | disposition home or self-care (01) | DRG 164 ==
LOC: CVICU 05:05
PROVIDERS: Nurse Practitioner; Physician Assistant Medical; ADMITTING PHYSICIAN Thoracic Surgery (Cardiothoracic Vascular Surgery); FAMILY PHYSICIAN Nurse Practitioner Family; OTHER PHYSICIAN Internal Medicine Critical Care Medicine
PROC: 07T70ZZ Resection of Thorax Lymphatic, Open Approach (ICD-10-PCS; 2024-01-07)
PROC: 0BTG0ZZ Resection of Left Upper Lung Lobe, Open Approach (ICD-10-PCS; 2024-01-07)
DX: C34.12 Malignant neoplasm of upper lobe, left bronchus or lung (principal); D62 Acute posthemorrhagic anemia; J95.811 Postprocedural pneumothorax; J98.11 Atelectasis; M81.0 Age-related osteoporosis without current pathological fracture; Y83.6 Removal of other organ (partial) (total) as the cause of abnormal reaction of the patient, or of later complication, without mention of misadventure at the time of the procedure; Z53.32 Thoracoscopic surgical procedure converted to open procedure; Z79.899 Other long term (current) drug therapy; Z85.3 Personal history of malignant neoplasm of breast; Z87.891 Personal history of nicotine dependence
CPT/HCPCS: 88305; 88309; 32505; 36415; 71045; 80048; 80053; 81003; 81459; 82248; 82805; 83036; 83735; 85025; 85027; 85610; 85730; 86803; 86850; 86900; 86901; 86920; 87070; 93005; 94002; 99406; C1713

== ENCOUNTER → 2024-01-19 10:13 | Outpatient (REF) | payer OTHER, SELFPAY | LOC: RAD 10:13 | PROVIDERS: ATTENDING PHYSICIAN Nurse Practitioner; FAMILY PHYSICIAN Nurse Practitioner Family | DX: R05.1 Acute cough (principal) | CPT/HCPCS: 71046 ==

== ENCOUNTER → 2024-02-03 10:39 | Outpatient (REF) | payer OTHER, SELFPAY | LOC: RAD 10:39 | PROVIDERS: ATTENDING PHYSICIAN Internal Medicine Critical Care Medicine; FAMILY PHYSICIAN Thoracic Surgery (Cardiothoracic Vascular Surgery) | DX: C34.92 Malignant neoplasm of unspecified part of left bronchus or lung (principal) | CPT/HCPCS: 71046 ==

== ENCOUNTER → 2024-06-17 12:17 | Outpatient (REF) | payer OTHER, SELFPAY | LOC: RAD 12:17 | PROVIDERS: ATTENDING PHYSICIAN Internal Medicine Critical Care Medicine; FAMILY PHYSICIAN Nurse Practitioner Family | DX: R91.1 Solitary pulmonary nodule (principal) | CPT/HCPCS: 71250 ==

== ENCOUNTER → 2024-07-27 11:02 | Outpatient (REF) | payer OTHER, SELFPAY ==
[2024-07-27 11:36] LABS: % Basophils 1.5 % (0-2); % Eosinophils 1.3 % (0-6); % Lymphocytes 30.1 % (20.5-51.1); % Monocytes 8.6 % (1.7-9.3); % Neutrophils 58.5 % (42.2-75.2); Absolute Basophils 0.1 10^3/uL (0-0.2); Absolute Eosinophils 0.1 10^3/uL (0-0.7); Absolute Lymphocytes 1.9 10^3/uL (1.2-3.4); Absolute Monocytes 0.5 10^3/uL (0.1-0.6); Absolute Neutrophils 3.6 10^3/uL (1.4-6.5); Hematocrit 44.8 % (37.0-47.0); Mean Corp Hgb Conc. 33.5 g/dL (33.0-37.0); Mean Corpuscular Hgb 31.9 pg (27.0-31.0); Mean Corpuscular Volume 95.3 fL (81.0-99.0); Mean Platelet Volume 8.9 fL (7.4-10.4); Nucleated Red Blood Cells % 0 %; Platelet Count 254 10^3/uL (130-400); Red Cell Dist. Width 13.2 % (11.5-14.5); White Blood Cell Count 6.2 10^3/uL (4.8-10.8)
== END ==
LOC: REG 11:02
PROVIDERS: ATTENDING PHYSICIAN Internal Medicine Critical Care Medicine; FAMILY PHYSICIAN Nurse Practitioner Family
DX: J43.9 Emphysema, unspecified (principal)
CPT/HCPCS: 36415; 85025; 93005

== ENCOUNTER → 2024-07-28 14:38 | Outpatient (REF) | payer OTHER, SELFPAY ==
[2024-07-28 16:03] LABS: ALT (SGPT) 33 U/L (0-35); AST (SGOT) 36 U/L (14-36); Albumin 4.5 g/dl (3.5-5.0); Alkaline Phosphatase 58 U/L (38-126); Blood Urea Nitrogen 16 mg/dl (7-17); Carbon Dioxide 28 mmol/L (22-30); Chloride 110 mmol/L (98-107); Glucose 88 mg/dl (70-99); Potassium 4.6 mmol/L (3.5-5.1); Sodium 144 mmol/L (135-145); Total Bilirubin 0.4 mg/dl (0.2-1.3); Total Protein 7.1 g/dl (6.3-8.2); eGFR > 60.00
== END ==
LOC: REG 14:38
PROVIDERS: ATTENDING PHYSICIAN Internal Medicine Hematology & Oncology; FAMILY PHYSICIAN Nurse Practitioner Family
DX: D73.9 Disease of spleen, unspecified (principal); M81.0 Age-related osteoporosis without current pathological fracture; D05.11 Intraductal carcinoma in situ of right breast; C34.12 Malignant neoplasm of upper lobe, left bronchus or lung
CPT/HCPCS: 36415; 80053

== ENCOUNTER 2024-09-16 13:15 | Outpatient (RCR) | payer OTHER, SELFPAY | END 2024-09-16 23:59 | disposition home or self-care (01) | LOC: PURB 13:15 | PROVIDERS: ATTENDING PHYSICIAN Internal Medicine Critical Care Medicine; FAMILY PHYSICIAN Nurse Practitioner Primary Care | DX: J43.9 Emphysema, unspecified (principal); C34.92 Malignant neoplasm of unspecified part of left bronchus or lung; R06.02 Shortness of breath; F17.210 Nicotine dependence, cigarettes, uncomplicated | CPT/HCPCS: G0237; G0239 ==

== ENCOUNTER 2024-10-14 13:15 | Outpatient (RCR) | payer OTHER, SELFPAY | END 2024-10-15 11:04 | disposition home or self-care (01) | LOC: PURB 13:15 | PROVIDERS: ATTENDING PHYSICIAN Internal Medicine Critical Care Medicine; FAMILY PHYSICIAN Nurse Practitioner Primary Care | DX: J43.9 Emphysema, unspecified (principal); R91.1 Solitary pulmonary nodule; F17.210 Nicotine dependence, cigarettes, uncomplicated; C34.92 Malignant neoplasm of unspecified part of left bronchus or lung | CPT/HCPCS: G0239 ==

== ENCOUNTER 2024-11-16 13:15 | Outpatient (RCR) | payer OTHER, SELFPAY | END 2024-11-16 23:59 | disposition home or self-care (01) | LOC: PURB 13:15 | PROVIDERS: ATTENDING PHYSICIAN Internal Medicine Critical Care Medicine; FAMILY PHYSICIAN Nurse Practitioner Primary Care | DX: J43.9 Emphysema, unspecified (principal) | CPT/HCPCS: G0239 ==

== ENCOUNTER → 2024-12-20 11:29 | Outpatient (REF) | payer OTHER, SELFPAY | LOC: HWRAD 11:29 | PROVIDERS: ATTENDING PHYSICIAN Internal Medicine Critical Care Medicine; FAMILY PHYSICIAN Nurse Practitioner Family | DX: C34.92 Malignant neoplasm of unspecified part of left bronchus or lung (principal) | CPT/HCPCS: 71250 ==